=== PATIENT | male | born 1940 | race Caucasian/White ===

== ENCOUNTER 2022-05-09 12:17 | Emergency (ER) | payer MEDICARE ==
[2022-05-09] MEDS ORDERED: Ondansetron 4 MG Tab.DIS PO ONE ×2 (12:39)
[2022-05-09] MEDS ORDERED: Meclizine 12.5 MG Tab PO ONE ×3 (12:51→14:46)
[2022-05-09] MEDS ORDERED: Sodium Chloride 0.9% 500 ML IV SCH (13:30)
[2022-05-09] MEDS ORDERED: Ondansetron 4 MG/2 ML SDV IVPUSH STA (14:28)
[2022-05-09] MEDS ORDERED: Take Home: Meclizine 12.5 MG Tab, 4 Tab Pack ONE (14:41)
[2022-05-09] MEDS ORDERED: Take Home: Ondansetron 4 MG Tab.DIS, 2 Tab Pack PO ONE (15:00)
[2022-05-09] MEDS ORDERED: Take Home: Meclizine 12.5 MG Tab, 4 Tab Pack PO ONE (15:04)
== END 2022-05-09 15:40 | disposition home or self-care (01) ==
LOC: CC.ED 12:17
DX: H81.11 Benign paroxysmal vertigo, right ear (principal); E78.00 Pure hypercholesterolemia, unspecified; I10 Essential (primary) hypertension; E66.9 Obesity, unspecified; Z68.41 Body mass index [BMI] 40.0-44.9, adult; Z79.899 Other long term (current) drug therapy; Z79.82 Long term (current) use of aspirin; Z90.49 Acquired absence of other specified parts of digestive tract
CPT/HCPCS: 36415; 71045; 80053; 84484; 85025; 86140; 93005; 96374; 99284; A9270; J2405; J7040